=== PATIENT | female | born 1960 | race Two or more races ===

== ENCOUNTER 2023-07-05 10:03 | Emergency (ER) | payer OTHER ==
[~2023-07-05] VITALS: Ht 167.6 cm; Wt 54.4 kg
[2023-07-05] MEDS ORDERED: TOPROL XL25 M1 PO (10:32)
[2023-07-05] MEDS ORDERED: ATIVAN1 M1 PO (10:32)
[2023-07-05] MEDS ORDERED: ENALAPRIL MALEAT5 MG PO (10:32)
[2023-07-05 12:26] LABS: HEMATOCRIT 37.6 % (36.0-45.00); HEMOGLOBIN 12.7 g/dL (12.0-15.00); MEAN CELL VOLUME 80.7 fL (80.00-100.00); MEAN CORPUSCULAR HEMOGLOBIN 27.3 pg (27.00-32.0); MEAN CORPUSCULAR HGB CONC 33.9 g/dl (32.0-36.0); PLATELET COUNT 241 K/uL (150-450); RED BLOOD COUNT 4.66 M/uL (4.00-6.00); RED CELL DISTRIBUTION WIDTH 14.5 % (11.5-14.5)
[2023-07-05 12:27] LABS: PH,URINE 6.5 (5.0-8.0); URINE APPEARANCE Clear; URINE BILIRRUBIN Negative (NEGATIVE); URINE BLOOD Small; URINE COLOR Yellow; URINE GLUCOSE Negative (NEGATIVE); URINE LEUKOCYTE Large; URINE NITRATE Negative; URINE PROTEIN Trace (NEGATIVE)
[2023-07-05 12:30] LABS: URINE EPITHELIAL CELLS 15.7 uL (0.0-38.8); URINE RBC 52.7 uL (0.0-20.8); URINE WBC 253.6 uL (0.0-23.2)
[2023-07-05 12:46] LABS: INR 1.03; PARTIAL THROMBOPLASTIN TIME 28.5 SECONDS (22.0-34.0); PROTHROMBIN TIME 10.8 SECONDS (9.0-11.5)
[2023-07-05 12:48] LABS: CALCIUM 9.9 mg/dL (8.5-10.1); CREATININE SERUM 0.69 mg/dL (0.55-1.02); GFR 85.65; POTASSIUM 4.32 mEq/L (3.5-5.1)
[2023-07-05] MEDS ORDERED: NAPROXEN500 MG PO (17:18)
[2023-07-05] MEDS ORDERED: CIPRO500 MG PO (17:18)
[2023-07-05] MEDS ORDERED: INTESTINEX680 M1 PO (17:18)
[2023-07-05] MEDS ORDERED: PEPCID AC20 MG PO (17:18)
[2023-07-05] MEDS ORDERED: ZOFRAN8 MG PO (17:18)
== END 2023-07-05 17:32 | disposition home or self-care (01) ==
LOC: ER 10:04
PROVIDERS: General Practice
DX: K59.00 Constipation, unspecified (principal); R10.9 Unspecified abdominal pain; I10 Essential (primary) hypertension; N39.0 Urinary tract infection, site not specified
CPT/HCPCS: 36415; 96365; 96366; 99284; J7042

== ENCOUNTER 2024-01-11 18:57 | Emergency (ER) | payer OTHER ==
[~2024-01-11] VITALS: Ht 157.5 cm; Wt 55.3 kg
[~2024-01-11 18:57] MED LIST: ATIVAN1 M1 PO; CIPRO500 MG PO; ENALAPRIL MALEAT5 MG PO; INTESTINEX680 M1 PO; NAPROXEN500 MG PO; PEPCID AC20 MG PO; TOPROL XL25 M1 PO; ZOFRAN8 MG PO
[2024-01-11] MEDS ORDERED: CARBAMAZEPINE 200 MG TABLET PO ONE (20:00)
[2024-01-11] MEDS ORDERED: KETOROLAC TROMETHAMINE 60 MG VIAL IM ONE (20:00)
[2024-01-11 21:11] LABS: HEMATOCRIT 41.8 % (36.0-45.00); HEMOGLOBIN 14.1 g/dL (12.0-15.00); MEAN CELL VOLUME 74.8 fL (80.00-100.00); MEAN CORPUSCULAR HEMOGLOBIN 25.2 pg (27.00-32.0); MEAN CORPUSCULAR HGB CONC 33.7 g/dl (32.0-36.0); PLATELET COUNT 217 K/uL (150-450); RED BLOOD COUNT 5.59 M/uL (4.00-6.00); RED CELL DISTRIBUTION WIDTH 15.9 % (11.5-14.5)
[2024-01-11 21:18] LABS: URINE APPEARANCE Clear; URINE BILIRRUBIN Negative (NEGATIVE); URINE BLOOD Negative; URINE COLOR Yellow; URINE GLUCOSE Negative (NEGATIVE); URINE LEUKOCYTE Negative; URINE NITRATE Negative; URINE PROTEIN Negative (NEGATIVE)
[2024-01-11 21:22] LABS: URINE BACTERIA 26.4 uL (0.0-1933); URINE EPITHELIAL CELLS 24.7 uL (0.0-38.8); URINE WBC 8.9 uL (0.0-23.2)
[2024-01-11 21:23] LABS: ALBUMIN 4.1 gm/dL (3.4-5.0); BILIRUBIN TOTAL 0.54 mg/dL (0.3-1.2); CALCIUM 9.9 mg/dL (8.5-10.1); CREATININE SERUM 0.64 mg/dL (0.55-1.02); GFR 93.42; GLOBULINA 3.3 G/DL (2.4-3.5); POTASSIUM 3.97 mEq/L (3.5-5.1); TOTAL PROTEIN 7.4 gm/dL (6.4-8.2)
[2024-01-11 21:56] LABS: URINE RBC 1.3 uL (0.0-20.8)
[2024-01-11] MEDS ORDERED: MORPHINE SULFATE 4 MG/ML VIAL IV ONE (22:45)
[2024-01-11] MEDS ORDERED: DEXAMETHASONE SODIUM PHOSP/PF 10 MG/ML VIAL IV ONE (22:45)
[2024-01-11] MEDS ORDERED: ONDANSETRON HCL 2 MG/ML VIAL IM ONE (22:45)
== END 2024-01-12 00:33 | disposition home or self-care (01) ==
LOC: ER 18:58
PROVIDERS: General Practice
DX: G37.3 Acute transverse myelitis in demyelinating disease of central nervous system (principal); R10.2 Pelvic and perineal pain; I10 Essential (primary) hypertension
CPT/HCPCS: 36415; 74177; Q9965

== ENCOUNTER 2024-02-07 19:06 | Emergency (ER) | payer OTHER ==
[~2024-02-07] VITALS: Ht 157.5 cm; Wt 55.3 kg
[2024-02-07] MEDS ORDERED: ENALAPRIL MALEA10 MG PO (19:39)
[2024-02-07] MEDS ORDERED: OXCARBAZEPINE150 MG PO (19:39)
[2024-02-07] MEDS ORDERED: FAMOTIDINE40 MG PO (19:39)
[2024-02-07] MEDS ORDERED: LOVASTATIN20 MG PO (19:40)
[2024-02-07] MEDS ORDERED: KETOROLAC TROME10 MG PO (19:40)
[2024-02-07] MEDS ORDERED: LORAZEPAM1 MG PO (19:40)
[2024-02-07] MEDS ORDERED: METOPROLOL SUCC25 MG PO (19:40)
[2024-02-07] MEDS ORDERED: PANTOPRAZOLE SO40 MG PO (19:43)
[2024-02-07] MEDS ORDERED: METHYLPREDNISOLONE SOD SUCC 40 MG VIAL IV ONE (20:00)
[2024-02-07] MEDS ORDERED: KETOROLAC TROMETHAMINE 60 MG VIAL IM ONE (20:00)
[2024-02-07] MEDS ORDERED: LORazepam 2 MG/ML VIAL IM ONE (20:00)
[2024-02-07] MEDS ORDERED: 0.9 % SODIUM CHLORIDE 500 ML IV ONE (20:15)
== END 2024-02-07 22:17 | disposition home or self-care (01) ==
LOC: ER 19:07
DX: G37.3 Acute transverse myelitis in demyelinating disease of central nervous system (principal); K59.00 Constipation, unspecified; R10.9 Unspecified abdominal pain; Z88.6 Allergy status to analgesic agent